=== PATIENT | female | born 1995 | race Caucasian/White ===

== ENCOUNTER → 2017-07-19 | Outpatient (CLI) | payer OTHER ==
[~2017-07-19] MED LIST: IBUP800 PO; Percocet 5-3251 EACH PO; Verotin-Gr Cap1 EACH PO; Zofran Odt4 MG SL
== END ==
LOC: LAB 10:56
DX: Z36.85 Encounter for antenatal screening for Streptococcus B (principal)
CPT/HCPCS: 87081; 87653

== ENCOUNTER 2017-08-09 00:14 | Inpatient (IN) | payer OTHER ==
[~2017-08-09] VITALS: Ht 152.4 cm; Wt 94.3 kg
[~2017-08-09 00:14] MED LIST changes: -IBUP800 PO; -Percocet 5-3251 EACH PO
[2017-08-09 01:23] LABS: BASOPHILS ABSOLUTE AUTO 0.02 K/mm3 (0.00-0.23); BASOPHILS PERCENT AUTO 0 % (0-2); EOSINOPHILS ABSOLUTE AUTO 0.08 K/mm3 (0.00-0.68); EOSINOPHILS PERCENT AUTO 1 % (0-6); Hematocrit 37.4 % (33.0-51.0); Hemoglobin 13.3 g/dL (11.5-16.0); IMMATURE GRAN ABSOLUTE AUTO 0.05 K/mm3 (0.00-0.10); IMMATURE GRAN PERCENT AUTO 1 % (0-1); LYMPHOCYTES ABSOLUTE AUTO 2.25 K/mm3 (0.84-5.20); LYMPHOCYTES PERCENT AUTO 21 % (21-46); MONOCYTES ABSOLUTE AUTO 0.81 K/mm3 (0.16-1.47); MONOCYTES PERCENT AUTO 7 % (4-13); Mean Corpuscular HGB 30.6 pg (26.0-34.0); Mean Corpuscular HGB Conc 35.6 g/dL (31.5-36.5); Mean Corpuscular Volume 86 fL (80-100); Mean Platelet Volume 11.4 fL (9.1-12.4); NEUTROPHILS ABSOLUTE AUTO 7.74 K/mm3 (1.96-9.15); NEUTROPHILS PERCENT AUTO 71 % (41-73); Platelet Count 198 K/mm3 (150-400); RDW Coefficient Variation 12.9 % (11.7-14.2); Red Blood Cell Count 4.34 M/mm3 (3.80-5.20); White Blood Cell Count 10.95 K/mm3 (4.00-11.30)
[2017-08-09 20:22] LABS: PCO2 Cord - Arterial 61.8 mmHg (40-50); PO2 Cord - Arterial < 12 mmHg (16-20); pH Cord - Arterial 7.22 (7.28-7.35)
[2017-08-09 20:23] LABS: PO2 Cord - Venous 24.6 mmHg (28-32); pH Umbilical Cord - Venous 7.32 (7.26-7.35)
[2017-08-10 06:42] LABS: Hematocrit 26.2 % (33.0-51.0); Hemoglobin 9.1 g/dL (11.5-16.0); Mean Corpuscular HGB 30.7 pg (26.0-34.0); Mean Corpuscular HGB Conc 34.7 g/dL (31.5-36.5); Mean Platelet Volume 11.3 fL (9.1-12.4); Platelet Count 145 K/mm3 (150-400); RDW Coefficient Variation 13.2 % (11.7-14.2); RDW Standard Deviation 42.8 fL (35.1-46.3); Red Blood Cell Count 2.96 M/mm3 (3.80-5.20); White Blood Cell Count 12.25 K/mm3 (4.00-11.30)
[2017-08-10 06:43] LABS: Mean Corpuscular Volume 89 fL (80-100)
[2017-08-11] MEDS ORDERED: Percocet 5-3251 EACH PO (12:56)
[2017-08-11] MEDS ORDERED: IBUP800 PO (12:56)
== END 2017-08-11 15:13 | disposition home or self-care (01) | DRG 766 ==
LOC: OBS 00:14 → BC 00:16 → OBS 00:47 → BC 00:48
PROVIDERS: Obstetrics & Gynecology; Registered Nurse Community Health
PROC: 10D00Z1 Extraction of Products of Conception, Low, Open Approach (ICD-10-PCS; principal; 2017-08-09 19:00)
DX: O32.4XX0 Maternal care for high head at term, not applicable or unspecified (principal); O62.1 Secondary uterine inertia; O77.9 Labor and delivery complicated by fetal stress, unspecified; Z3A.39 39 weeks gestation of pregnancy; Z37.0 Single live birth
CPT/HCPCS: 36415; 51702; 81003; 82803; 85025; 85027; 86850; 86900; 86901; J0690; J1885; J2270; J2405; J2590; J2765; J3010; J7050; J7120